=== PATIENT | female | born 1985 | race Caucasian/White ===

== ENCOUNTER 2022-11-26 14:07 | Emergency (ER) | payer BC, OTHER ==
[~2022-11-26] VITALS: Ht 167.6 cm; Wt 63.5 kg
--- NOTE | 2022-11-26 14:18 | NUR ---
[email or web address], medical screening exam in progress
[2022-11-26] MEDS ORDERED: ACETAMINOPHEN 325 MG TABLET ONE (14:39)
[2022-11-26] MEDS ORDERED: LIDOCAINE 5% PATCH TD ONE ×2 (14:39→14:45)
[2022-11-26] MEDS ORDERED: NAPROXEN 500 MG TABLET ONE (14:39)
[2022-11-26] MEDS ORDERED: ACETAMINOPHEN 325 MG TABLET PO ONE (14:45)
[2022-11-26] MEDS ORDERED: NAPROXEN 500 MG TABLET PO ONE (14:45)
--- NOTE | 2022-11-26 15:15 | NUR ---
Patient discharged to home in stable condition. Written and verbal after care instructions given. Patient verbalizes understanding of instructions. Stressed follow up or return to ER for worsening s/s.
[2022-11-26 15:20] VITALS: BP 129/91
== END 2022-11-26 15:15 | disposition home or self-care (01) ==
LOC: ER 14:13
DX: M54.50 Low back pain, unspecified (principal); W19.XXXA Unspecified fall, initial encounter; Y92.89 Other specified places as the place of occurrence of the external cause; F10.10 Alcohol abuse, uncomplicated; F41.9 Anxiety disorder, unspecified; K21.9 Gastro-esophageal reflux disease without esophagitis
CPT/HCPCS: A4663